=== PATIENT | female | born 1965 | race Caucasian/White ===

== ENCOUNTER → 2017-10-06 | Outpatient (CLI) | payer OTHER ==
[~2017-10-06] MED LIST: AMBIEN 10MG10 MG PO; CLEOCIN HC150 MG/CAP PO; LORTAB 5/500 501 TAB PO; MULTIPLE VITAMI1 CAP PO; NAPROSYN500 MG PO; NO HOME MEDICATIONS; NORCO 325 MG-51 TAB PO; PHENERGAN 25 TA25 MG PO; PHENERGAN W/CO120 ML PO; PYRIDIUM200 M1 PO
== END ==
LOC: COL.RAD 09:45
DX: M48.061 Spinal stenosis, lumbar region without neurogenic claudication (principal)
CPT/HCPCS: A9585